=== PATIENT | female | born 1980 | race American Indian/Alaskan Native ===

== ENCOUNTER 2018-04-14 13:46 | Emergency (ER) | payer MEDICAID ==
[2018-04-14 14:19] LABS: HCG Qualitative,Urine Positive (Negative)
--- NOTE | 2018-04-14 15:07 | Emergency Department Report ---
Blank Doc - Documentation Documentation: Patient is a 37-year-old black female who is in early stages of who is complaining of some spotting. Patient says she saw some brown discharge that she is some blood today. Patient did have an ultrasound [facility] that showed a very early IUP. The patient was not bleeding at that time. Patient states is some mild crampiness in the lower abdomen. Patient is on focused physical exam shows no abdominal pain is no rebound or guarding heart and lungs are within normal limits. Ultrasound to be done.
[2018-04-14 15:30] LABS: Bacteria,Urine 1+ /HPF (Negative); Bilirubin,Urine NEG (Negative); Blood,Urine SM (Negative); Color,Urine Colorless (Yellow); Protein,Urine <15 mg/dL mg/dL (Negative); Urobilinogen,Urine < 2.0 mg/dL (<2.0)
--- NOTE | 2018-04-14 17:27 | Ultrasound Report ---
FINAL REPORT EXAM: US OB TRANSVAGINAL HISTORY: preg with vag bleed TECHNIQUE: Transvaginal sonography of the pelvis. PRIORS: None. FINDINGS: There is a single, live intrauterine . Ultrasound estimated gestational age is 5 weeks 6 days. Ultrasound estimated date of confinement is 18 November 2029. heart motion is detected. Ovoid, hypoechoic fibroid in anterior uterine corpus measuring approximately 0.9 x 1.2 cm. The right ovary measures 4.6 x 2.9 x 4.3 cm and contains an ovoid, cystic focus measuring 3.4 cm. The left ovary measures 2.5 x 1.6 x 2 cm and is grossly unremarkable. Remainder of uterus and adnexa grossly unremarkable. IMPRESSION: 1. Single, live intrauterine . 2. Small uterine fibroid. 3. Probable functional cystic change in the right ovary. Clinical correlation and followup pelvic ultrasound in 6-10 weeks advised to document resolution.
--- NOTE | 2018-04-14 18:34 | Emergency Department Report ---
ED Female HPI - General Chief complaint: Vaginal Bleeding Stated complaint: SPOTTING BROWN Time Seen by Provider: 04/14/18 14:53 Source: patient Mode of arrival: Ambulatory Limitations: No Limitations - History of Present Illness Initial comments: Patient is a 37-year-old black female who is in early stages of who is complaining of some spotting. Patient says she saw some brown discharge that she is some blood today. Patient did have an ultrasound [facility] that showed a very early IUP. The patient was not bleeding at that time. Patient states is some mild crampiness in the lower abdomen. - Related Data Allergies Allergy/AdvReac Type Severity Reaction Status Date / Time No Known Allergies Allergy Unverified 04/14/18 13:54 ED Review of Systems ROS: Stated complaint: SPOTTING BROWN Other details as noted in HPI Comment: All other systems reviewed and negative ED Past Medical Hx - Past Medical History Previous Medical History?: No - Surgical History Additional Surgical History: X2 - Social History Smoking Status: Current Every Day Smoker Substance Use Type: None ED Physical Exam - General Limitations: No Limitations General appearance: alert, in no apparent distress - Head Head exam: Present: atraumatic, normocephalic - Eye Eye exam: Present: normal appearance - ENT ENT exam: Present: mucous membranes moist - Neck Neck exam: Present: normal inspection - Respiratory Respiratory exam: Present: normal lung sounds bilaterally. Absent: respiratory distress, wheezes, rales, rhonchi - Cardiovascular Cardiovascular Exam: Present: regular rate, normal rhythm. Absent: systolic murmur, diastolic murmur, rubs, gallop - GI/Abdominal GI/Abdominal exam: Present: soft, normal bowel sounds. Absent: distended, tenderness, guarding, rebound - Extremities Exam Extremities exam: Present: normal inspection - Back Exam Back exam: Present: normal inspection - Neurological Exam Neurological exam: Present: alert, oriented X3 - Psychiatric Psychiatric exam: Present: normal affect, normal mood - Skin Skin exam: Present: warm, dry, intact, normal color. Absent: rash ED Course Vital Signs 04/14/18 13:54 Temperature 98.5 F Pulse Rate 85 Respiratory 20 Rate Blood Pressure 142/75 O2 Sat by Pulse 99 Oximetry ED Medical Decision Making - Lab Data Lab Results 04/14/18 04/14/18 04/14/18 Range/Units 15:08 15:16 Unknown HCG, Quant 96312 H (0-4) mIU/mL Urine Color Colorless (Yellow) Urine Turbidity Clear (Clear) Urine pH 6.0 (5.0-7.0) Ur Specific [place] 1.002 L (1.003-1.030) Urine Protein <15 mg/dl (Negative) mg/dL Urine Glucose (UA) Neg (Negative) mg/dL Urine Ketones Neg (Negative) mg/dL Urine Blood Sm (Negative) Urine Nitrite Neg (Negative) Urine Bilirubin Neg (Negative) Urine Urobilinogen < 2.0 (<2.0) mg/dL Ur Leukocyte Esterase Neg (Negative) Urine WBC (Auto) 1.0 (0.0-6.0) /HPF Urine RBC (Auto) 1.0 (0.0-6.0) /HPF U Epithel Cells (Auto) 3.0 (0-13.0) /HPF Urine Bacteria (Auto) 1+ (Negative) /HPF Urine HCG, Qual Positive A (Negative) - Radiology Data Ultrasound transvaginal shows a 5 week 6 day IUP with a good heartbeat. As a small right ovarian cyst and a small uterine fibroid. - Medical Decision Making Patient exhibiting some very light spotting secondary possibly to a uterine fibroid. Patient is IUP that is viable. Patient be discharged home with follow -up with [facility]. Critical care attestation.: If time is entered above; I have spent that time in minutes in the direct care of this critically ill patient, excluding procedure time. ED Disposition Clinical Impression: First trimester bleeding, Uterine fibroid Disposition: TO HOME OR SELFCARE Is pt being admited?: No Does the pt Need Aspirin: No Condition: Stable Instructions: Uterine Fibroids (ED) Referrals: YUMIKO CARRIZALES MD [Staff Physician] - 3-5 Days
[2018-04-14 18:40] VITALS: BP 138/74
--- NOTE | 2018-04-15 13:04 | Ultrasound Report ---
FINAL REPORT EXAM: US OB < = 14 WEEKS FETUS HISTORY: preg with vag bleed COMPARISON: None. TECHNIQUE: Transabdominal imaging of the pelvis was performed. FINDINGS: The uterus measures 11.2 x 6.3 x 7.4 centimeters and is anteverted. There is a 1.6 x 0.9 x 1.2 centimeter myometrial fibroid in the anterior uterus. There is a single live intrauterine with a gestational sac diameter of 2 centimeters. There is a crown-rump length of 3 millimeters, corresponding to a gestational age of 5 weeks, 6 days, with estimated date of delivery of 12/09/2018. heart rate is 113 beats per minute. The right ovary measures 4.6 x 2.9 x 4.3 centimeters. There is a right ovarian cyst that measures 3.4 centimeters. The left ovary measures 2.5 x 1.6 x 2 centimeters and is normal in morphology. IMPRESSION: 1. Single live intrauterine with gestational age by ultrasound of 5 weeks, 6 days, with estimated date of delivery of 12/09/2018. 2. Small anterior myometrial fibroid.
== END 2018-04-14 18:39 | disposition home or self-care (01) ==
LOC: ED 13:46
DX: O26.891 Other specified pregnancy related conditions, first trimester (principal); D25.9 Leiomyoma of uterus, unspecified; O46.91 Antepartum hemorrhage, unspecified, first trimester; F17.200 Nicotine dependence, unspecified, uncomplicated; Z3A.01 Less than 8 weeks gestation of pregnancy
CPT/HCPCS: 36415; 76801; 76817; 81001; 81025; 84702; 99284

== ENCOUNTER 2018-07-01 18:27 | Emergency (ER) | payer SELFPAY ==
[2018-07-01 19:16] VITALS: BP 136/67
[2018-07-01 19:45] LABS: Bilirubin,Urine NEG (Negative); Blood,Urine NEG (Negative); Color,Urine Straw (Yellow); Protein,Urine <15 mg/dL mg/dL (Negative); Urobilinogen,Urine < 2.0 mg/dL (<2.0)
--- NOTE | 2018-07-01 20:16 | Emergency Department Report ---
ED Female HPI - General Chief complaint: Urogenital-Female Stated complaint: VAGINAL PAIN Time Seen by Provider: 07/01/18 19:34 Source: patient Mode of arrival: Ambulatory Limitations: No Limitations - Related Data Allergies Allergy/AdvReac Type Severity Reaction Status Date / Time No Known Allergies Allergy Verified 07/01/18 19:12 ED Review of Systems ROS: Stated complaint: VAGINAL PAIN Other details as noted in HPI ED Past Medical Hx - Past Medical History Previous Medical History?: No - Surgical History Past Surgical History?: Yes Additional Surgical History: X2 - Social History Smoking Status: Never Smoker Substance Use Type: None ED Physical Exam - General Limitations: No Limitations ED Course Vital Signs 07/01/18 19:12 Temperature 99.1 F Pulse Rate 102 H Respiratory 16 Rate Blood Pressure 136/67 O2 Sat by Pulse 100 Oximetry Critical care attestation.: If time is entered above; I have spent that time in minutes in the direct care of this critically ill patient, excluding procedure time. ED Disposition Condition: Stable
== END 2018-07-01 20:24 ==
LOC: ED 18:27
DX: R10.2 Pelvic and perineal pain (principal); Z53.21 Procedure and treatment not carried out due to patient leaving prior to being seen by health care provider
CPT/HCPCS: 36415; 81001; 84703